=== PATIENT | female | born 1980 | race Caucasian/White ===

== ENCOUNTER → 2016-04-05 | Outpatient (CLI) | payer OTHER ==
[~2016-04-05] MED LIST: ALBU17IN2 INH; ANUS2.5C2 TOP; COLA100C PO; MOM30SS PO; MOTR200T44 PO; PRENMIS3 PO; SING10TA32 PO; TYLE167L PO; ZYRT10CA PO
[2016-04-05 13:33] LABS: BASO % 0.6 % (0.0-1.0); EOS # 0.1 K/mm3 (0.0-0.50); EOS % 1.1 % (0.0-3.0); LARGE UNSTAINED CELL # 0.1 K/mm3 (0.0-0.4); LARGE UNSTAINED CELL % 1.7 % (0.0-4.0); LYMPH # 2.3 K/mm3 (1.5-4.5); LYMPH % 31.2 % (24.0-44.0); MEAN CORPUSCULAR HEMOGLOBIN 30.4 pg (27.0-33.0); MONO # 0.4 K/mm3 (0.0-0.8); NEUTROPHILS # 4.4 K/mm3 (1.8-7.7); NEUTROPHILS % 59.5 % (36.0-66.0); PLATELET COUNT, AUTOMATED 191 k/mm3 (150-450); RED CELL DISTRIBUTION WIDTH 11.3 % (11.5-14.5); WHITE BLOOD COUNT 7.4 K/mm3 (4.0-10.0)
[2016-04-05 14:06] LABS: HBsAg Prenatal NEGATIVE (NEGATIVE)
[2016-04-05 14:36] LABS: HIV SCRN NEGATIVE (NEGATIVE)
[2016-04-05 14:37] LABS: CONTROL LINE INT CTR LINE PRESENT; HIV SCRN1 NEGATIVE (NEGATIVE)
== END ==
LOC: M SMT 08:18
PROVIDERS: ATTEND Advanced Practice Midwife
DX: Z34.81 Encounter for supervision of other normal pregnancy, first trimester (principal)

== ENCOUNTER → 2016-07-07 | Outpatient (CLI) | payer OTHER ==
[~2016-07-07] MED LIST changes: -COLA100C PO; +COLA100C3 PO
--- NOTE | 2016-07-08 05:27 | REP ---
Clinical: Anatomical evaluation. Comparison: None . Findings: Examination demonstrates a single live intrauterine in cephalic presentation. motion is identified by technologist. Placenta is noted posterior and grade 0 without evidence for placenta previa or abruption. Amniotic fluid volume is normal. Cervix measures 6.1 cm in length and appears closed. 2.9 cm anterior fibroid in the lower uterine segment noted. No evidence for nuchal cord. Gestational age by LMP 19 week 6 days with LYNN 11/25/2016 . Gestational age by current measurements 20 weeks 1 day with LYNN 11/23/2016 . FHR equals 144 beats per minute. BPD 4.8 cm 20 weeks 4 days HC 17.9 cm 20 weeks 3 days AC 15.0 cm 20 weeks 2 days FL 3.3 cm 20 weeks 2 days HL 2.9 cm 19 weeks 3 days HC/AC ratio 1.19 Estimated weight 344 grams ( 61st percentile). Anatomical assessment demonstrates normal structures including cranium, choroid plexus, cavum, cerebellum/posterior fossa, facial features, lungs, four-chamber heart/ventricular outflow tracts, diaphragm, stomach, cord insertion/three-vessel cord, kidneys/bladder, spine, and extremities. Echogenic focus in the left cardiac ventricle likely prominent chordae tendineae. Impression: 1. Single live intrauterine in cephalic presentation demonstrating appropriate interval growth. 2. A 2.9 cm anterior fibroid in the lower uterine segment. 3. Anatomical assessment is essentially normal as described above. Prominent chordae tendineae suggested. Signed by Robbin Hughes MD 07/08/2016 05:18 A
== END ==
LOC: M RAD 17:24
PROVIDERS: ATTEND Advanced Practice Midwife
DX: Z34.82 Encounter for supervision of other normal pregnancy, second trimester (principal); Z3A.19 19 weeks gestation of pregnancy

== ENCOUNTER → 2016-07-22 | Outpatient (CLI) | payer OTHER | LOC: M SMT 10:17 | PROVIDERS: ATTEND Obstetrics & Gynecology | DX: Z36 Encounter for antenatal screening of mother (principal) ==

== ENCOUNTER → 2016-08-06 | Outpatient (CLI) | payer OTHER ==
[2016-08-06 13:39] LABS: MEAN CORPUSCULAR HEMOGLOBIN 32.4 pg (27.0-33.0); MEAN CORPUSCULAR HGB CONC 33.8 g/dl (32.0-36.5); MEAN CORPUSCULAR VOLUME 96.1 fl (80.0-96.0); RED CELL DISTRIBUTION WIDTH 12.2 % (11.5-14.5); WHITE BLOOD COUNT 11.3 K/mm3 (4.0-10.0)
== END ==
LOC: M SMT 09:07
PROVIDERS: ATTEND Obstetrics & Gynecology
DX: Z34.82 Encounter for supervision of other normal pregnancy, second trimester (principal)

== ENCOUNTER → 2016-10-28 | Outpatient (REF) | payer OTHER ==
[~2016-10-28] MED LIST changes: +ASMA110A IN; -COLA100C3 PO; +COLA100C5 PO; +IBUP-1114 PO; +PRENTAB9 PO; +RANI15TA PO
== END ==
LOC: M LAB REF 13:34
PROVIDERS: ATTEND Advanced Practice Midwife
DX: Z36 Encounter for antenatal screening of mother (principal); Z3A.00 Weeks of gestation of pregnancy not specified

== ENCOUNTER 2016-11-24 11:54 | Inpatient (IN) | payer OTHER ==
[~2016-11-24] VITALS: Ht 157.5 cm; Wt 91.8 kg
[~2016-11-24 11:54] MED LIST changes: -ASMA110A IN; -IBUP-1114 PO; -PRENTAB9 PO; -RANI15TA PO
[2016-11-24] MEDS ORDERED: ASMA110A IN (12:22)
[2016-11-24] MEDS ORDERED: RANI15TA PO (12:22)
[2016-11-24] MEDS ORDERED: LR 1,000 ML IV SCH (13:25)
[2016-11-24] MEDS ORDERED: OXYTOCIN DRIP 30 UNITS in APPROPRIATE DILUENT 1 EA IV SCH (13:30)
--- NOTE | 2016-11-24 14:28 | HPE ---
DATE OF ADMISSION: 11/24/2016 36-year-old, (G) 2, para (P) 1-0-0-1 female at 39 and 6/7 weeks gestation by last menstrual period (LMP) consistent with 10 week ultrasound and expected date of confinement (EDC) of 11/25/2016 who presents with spontaneous loss of fluid per vagina at 9:00 a.m. on the morning of admission. She denies vaginal bleeding and has good movement. Contractions are irregular. COURSE: The patient initiated care at 9 weeks gestation on 04/27/2016. Her blood pressure was 198/60, weight 159 pounds. course was unremarkable. OBSTETRICAL HISTORY: 1. In June 2013, 41 week vaginal delivery of a 7 pound 14 ounce male infant with no complications. MEDICAL HISTORY: Asthma. ALLERGIES: SULFA. SURGERIES: 1. Cryo surgery in 2003 of the cervix. 2. Left knee surgery. 3. Bunion surgery on her left foot. 4. In 2003, removal of neuroma from her left foot. 5. In 2005, left shoulder surgery. 6. In 2008, LASIK eye surgery. SOCIAL HISTORY: The patient denies cigarettes, alcohol or drug use. The patient is . FAMILY HISTORY: Noncontributory. PHYSICAL EXAMINATION: Blood pressure 124/78. Pulse 84. She is in on apparent distress. Head and neck exam normal. Lungs clear. Heart regular rate and rhythm. Abdomen nontender, gravid. heart tones Category 1. Sterile Vaginal Exam: 2-3 cm, 50% effaced, -2 station, vertex. Extremities: Nontender. Grossly ruptured, clear fluid. LABS: Blood type B positive. Rubella immune. RPR nonreactive. Hepatitis B and C negative. HIV negative. Diabetes screen 111. GBS negative on 10/28/2016. ASSESSMENT: 36-year-old, G 2, P1 female at 39 and 6/7 weeks gestation who presents with spontaneous rupture of membranes and early labor. The patient is admitted on 11/24/2016. If needed, can augment with oxytocin.
[2016-11-24 14:36] LABS: MEAN CORPUSCULAR HEMOGLOBIN 30.5 pg (27.0-33.0); MEAN CORPUSCULAR HGB CONC 34.6 g/dl (32.0-36.5); MEAN CORPUSCULAR VOLUME 88.1 fl (80.0-96.0); RED CELL DISTRIBUTION WIDTH 12.5 % (11.5-14.5); WHITE BLOOD COUNT 12.5 K/mm3 (4.0-10.0)
[2016-11-24] MEDS ORDERED: FENTANYL 2MCG/ML ROPIVACAINE 0.2% IN 0.9% NACL 200ML IVBAG As Ordered ONE (15:02)
[2016-11-24] MEDS ORDERED: diphenhydrAMINE INJ 50MG/ML VIAL (J1200) IV PRN (16:15)
[2016-11-24] MEDS ORDERED: ONDANSETRON 4MG/2ML VIAL (J2405) IV PRN ×2 (16:15→19:15)
[2016-11-24] MEDS ORDERED: REFRIGERATOR IV KEYS XX PRN (16:15)
[2016-11-24] MEDS ORDERED: EPIDURAL/PCA KEYS XX PRN (16:15)
[2016-11-24] MEDS ORDERED: EPIDURAL COMMENT XX SCH (16:15)
[2016-11-24] MEDS ORDERED: LACTATED RINGER'S 1000 ML IV PRN (16:15)
[2016-11-24] MEDS ORDERED: FENTANYL/ROPIVACAINE/NACL BAG 200 ML EPIDURAL SCH (16:15)
[2016-11-24] MEDS ORDERED: NALOXONE INJ 0.4 MG/1 ML VIAL (J2310) IV PRN (16:15)
[2016-11-24] MEDS: ePHEDrine SULFATE 25 MG/5 ML(5MG/ML) SYRINGE IV PRN ×3 (16:32→16:42)
[2016-11-24 19:13] VITALS: BP 125/58
[2016-11-24] MEDS ORDERED: DIBUCAINE 1% OINTMENT 30GM TOP PRN (19:15)
[2016-11-24] MEDS ORDERED: MEASLES,MUMPS,RUBELLA VACCINE INJ (MMR-II) (90707) SC SCH (19:15)
[2016-11-24] MEDS ORDERED: ACETAMINOPHEN 500 MG TAB PO PRN (19:15)
[2016-11-24] MEDS ORDERED: RHOGAM 300 MCG (1500 IU) INJ (J2790) IM SCH (19:15)
[2016-11-24] MEDS ORDERED: METHYLERGONOVINE MALEATE 0.2 MG TAB PO PRN (19:15)
[2016-11-24] MEDS ORDERED: DOCUSATE SODIUM 100 MG CAP PO PRN (19:15)
[2016-11-24] MEDS ORDERED: OXYTOCIN DRIP 30 UNITS in APPROPRIATE DILUENT 1 EA IV ONE (19:15)
[2016-11-24 19:28] VITALS: BP 104/60
[2016-11-24 19:43] VITALS: BP 111/66
[2016-11-24 19:58] VITALS: BP 111/58
[2016-11-24 20:13] VITALS: BP 123/61
[2016-11-24 22:01] VITALS: BP 127/60
[2016-11-24] MEDS: IBUPROFEN 800 MG TAB PO PRN (23:51)
[2016-11-25 06:16] VITALS: BP 109/61
--- NOTE | 2016-11-25 07:38 | DN ---
DATE: 11/24/2016 PREDELIVERY DIAGNOSIS: Term , labor. POSTDELIVERY DIAGNOSIS: Delivered. PROCEDURE: Spontaneous vaginal delivery. BANKRUPTCY JUDGE: Dr. Nacho Lenz ANESTHESIA: Epidural. ESTIMATED BLOOD LOSS: 300 mL. FINDINGS: 7 pound 4 ounce male infant, Apgars 8 and 9. DELIVERY SUMMARY: After a short second stage of 10 to 15 minutes, the patient had spontaneous delivery of a 7 pound 4 ounce male , Apgars of 8 and 9, under epidural anesthesia. Tight nuchal cord times one was clamped and cut. Light meconium was present. Shoulders delivered spontaneously with ease. Infant cried spontaneously and was handed to the mother. Placenta delivered spontaneously and appeared to be intact. The patient received IV Pitocin immediately after delivery of the placenta. A first degree perineal laceration was repaired with #2-0 chromic in the usual fashion. Sponge and needle counts were correct.
[2016-11-25] MEDS: PRENATAL VITAMINS CHEWABLE TABLET PO SCH (08:05)
[2016-11-25] MEDS: MONTELUKAST 10 MG TAB PO SCH (08:05)
[2016-11-25] MEDS: CETIRIZINE (ZyrTEC) 10 MG TAB PO SCH (08:05)
[2016-11-25] MEDS: IBUPROFEN 800 MG TAB PO PRN ×3 (08:06→23:26)
[2016-11-25 18:00] VITALS: BP 100/50
[2016-11-26 06:34] VITALS: BP 113/67
[2016-11-26] MEDS ORDERED: IBUP-1114 PO (09:01)
[2016-11-26] MEDS ORDERED: PRENTAB9 PO (09:01)
[2016-11-26] MEDS: CETIRIZINE (ZyrTEC) 10 MG TAB PO SCH (09:39)
[2016-11-26] MEDS: MONTELUKAST 10 MG TAB PO SCH (09:39)
[2016-11-26] MEDS: PRENATAL VITAMINS CHEWABLE TABLET PO SCH (09:39)
[2016-11-26] MEDS: IBUPROFEN 800 MG TAB PO PRN (09:45)
== END 2016-11-26 10:55 | disposition home or self-care (01) | DRG 775 ==
LOC: M LDO 11:54 → M LDI 12:30 → M OBS 20:48
PROVIDERS: ADMIT Specialist; ATTEND Specialist
PROC: 10E0XZZ Delivery of Products of Conception, External Approach (ICD-10-PCS; principal; 2016-11-24)
PROC: 0HQ9XZZ Repair Perineum Skin, External Approach (ICD-10-PCS; 2016-11-24)
DX: O69.89X0 Labor and delivery complicated by other cord complications, not applicable or unspecified (principal); Z37.0 Single live birth; Z3A.39 39 weeks gestation of pregnancy; O77.0 Labor and delivery complicated by meconium in amniotic fluid; O70.0 First degree perineal laceration during delivery

== ENCOUNTER → 2017-03-09 | Outpatient (CLI) | payer OTHER | LOC: M WUC 10:24 | DX: M79.671 Pain in right foot (principal) | CPT/HCPCS: 73630 ==

== ENCOUNTER → 2017-04-13 | Outpatient (REF) | payer OTHER ==
[2017-04-13 14:15] LABS: INFLUENZA A AMPLIFICATION NEGATIVE (NEGATIVE); INFLUENZA B AMPLIFICATION NEGATIVE (NEGATIVE)
== END ==
LOC: M LAB REF 13:09
DX: J06.9 Acute upper respiratory infection, unspecified (principal)

== ENCOUNTER → 2018-03-29 | Outpatient (CLI) | payer OTHER ==
[~2018-03-29] MED LIST changes: +ASMA110A IN; +IBUP-1114 PO; +PRENTAB9 PO; +RANI15TA PO
[2018-03-29 13:36] LABS: BASO % 0.4 % (0.0-1.0); EOS # 0.1 10^3/uL (0.0-0.50); EOS % 1.1 % (0.0-3.0); HEMATOCRIT 43.5 % (36.0-47.0); HEMOGLOBIN 14.6 g/dl (12.0-15.5); LYMPH # 2.5 10^3/uL (1.5-4.5); MEAN CORPUSCULAR HEMOGLOBIN 30.3 pg (27.0-33.0); MEAN CORPUSCULAR HGB CONC 33.6 g/dl (32.0-36.5); MEAN CORPUSCULAR VOLUME 90.2 fl (80.0-96.0); MONO # 0.4 10^3/uL (0.0-0.8); MONO % 5.9 % (0.0-5.0); NEUTROPHILS # 4.3 10^3/uL (1.8-7.7); NEUTROPHILS % 58.3 % (36.0-66.0); PLATELET COUNT, AUTOMATED 245 10^3/uL (150-450); RED BLOOD COUNT 4.82 10^6/uL (4.00-5.40); WHITE BLOOD COUNT 7.3 10^3/uL (4.0-10.0)
[2018-03-29 13:48] LABS: ALT/SGPT 19 U/L (12-78); BLOOD UREA NITROGEN 14 MG/DL (7-18); CALCIUM LEVEL 9.4 MG/DL (8.5-10.1); CARBON DIOXIDE LEVEL 27 MEQ/L (21-32); CHLORIDE LEVEL 104 MEQ/L (98-107); CHOLESTEROL LEVEL 176 MG/DL (<200); CHOLESTEROL RISK RATIO 2.346 (<5); CREATININE FOR GFR 0.96 MG/DL (0.55-1.30); FREE T4 0.95 NG/DL (0.76-1.46); GLOMERULAR FILTRATION RATE > 60.0 (>60); GLUCOSE, FASTING 93 MG/DL (70-100); HDL CHOLESTEROL 75 MG/DL (>40); LDL CHOLESTEROL 91 MG/DL (<100); NON-HDL-C 101 MG/DL; POTASSIUM SERUM 4.3 MEQ/L (3.5-5.1); SODIUM LEVEL 139 MEQ/L (136-145); THYROID STIMULATING HORMONE 0.833 uIU/ML (0.358-3.740); TOTAL PROTEIN 7.1 GM/DL (6.4-8.2); TRIGLYCERIDES LEVEL 51 MG/DL (<150)
== END ==
LOC: M SMT 09:39
PROVIDERS: ATTEND Family Medicine
DX: Z13.0 Encounter for screening for diseases of the blood and blood-forming organs and certain disorders involving the immune mechanism (principal); Z13.220 Encounter for screening for lipoid disorders; Z13.29 Encounter for screening for other suspected endocrine disorder

== ENCOUNTER → 2018-04-17 | Outpatient (CLI) | payer OTHER ==
--- NOTE | 2018-04-24 10:24 | SLEEPHOME ---
DATE OF PROCEDURE: 04/17/2018 ORDERED BY: Ginny Sanchez. INDICATIONS: Diagnostic home sleep testing was performed due to concern for the obstructive sleep apnea syndrome in this patient with a history of excessive somnolence and nonrestorative sleep. For testing, a nocturnal T3 respiratory monitoring device was used. Continuous record was made of pulse, oxygen saturation, airflow, chest, abdominal strain and body position. 10 hours and 59 minutes of data were reviewed. Of these, 7 hours and 13 minutes were marked as time in bed. During the interval marked time in bed, there were only 9 respiratory events identified of 10 seconds in duration or greater for a respiratory event index was only 1.2. The patient's pulse rate at baseline was 60 beats per minute, pulse rate ranged from 47-98. Saturations ranged from 92-95%. Testing was performed in both the supine and non-supine positions. IMPRESSION: Reasonably normal diagnostic home sleep testing with rare respiratory events and snoring.
== END ==
LOC: M SLEEP HO 03-21 12:03
PROVIDERS: ATTEND Nurse Practitioner Family
DX: R40.0 Somnolence (principal); R06.83 Snoring

== ENCOUNTER → 2018-08-21 | Outpatient (REF) | payer OTHER ==
[2018-08-23 14:47] LABS: HPV HYBRID CAPTURE II Negative (Negative)
== END ==
LOC: M LAB REF 12:44
PROVIDERS: ATTEND Advanced Practice Midwife
DX: Z12.4 Encounter for screening for malignant neoplasm of cervix (principal)
CPT/HCPCS: 87624; G0123

== ENCOUNTER 2018-09-27 15:00 | Outpatient (RCR) | payer OTHER | END 2018-10-04 | LOC: M PT 15:00 | PROVIDERS: ATTEND Advanced Practice Midwife | DX: Z51.89 Encounter for other specified aftercare (principal); N39.3 Stress incontinence (female) (male) ==

== ENCOUNTER → 2018-10-02 | Outpatient (REF) | payer OTHER | LOC: M LAB REF 18:08 | PROVIDERS: ATTEND Advanced Practice Midwife | DX: N92.0 Excessive and frequent menstruation with regular cycle (principal); N85.00 Endometrial hyperplasia, unspecified ==

== ENCOUNTER → 2018-10-12 | Outpatient (REF) | payer OTHER | LOC: M LAB REF 09:47 | PROVIDERS: ATTEND Surgery | DX: C44.619 Basal cell carcinoma of skin of left upper limb, including shoulder (principal) ==

== ENCOUNTER 2018-10-24 08:30 | Outpatient (RCR) | payer OTHER | END 2018-11-04 | LOC: M PT 08:30 | PROVIDERS: ATTEND Advanced Practice Midwife | DX: N39.3 Stress incontinence (female) (male) (principal) ==

== ENCOUNTER → 2018-11-13 | Outpatient (REF) ==
[2018-11-13 14:03] LABS: BASO % 0.5 % (0.0-1.0); EOS # 0.2 10^3/uL (0.0-0.5); EOS % 2.8 % (0.0-3.0); HEMATOCRIT 42.8 % (36.0-47.0); LYMPH # 3.5 10^3/uL (1.5-5.0); LYMPH % 44.7 % (24.0-44.0); MEAN CORPUSCULAR HEMOGLOBIN 30.2 pg (27.0-33.0); MEAN CORPUSCULAR HGB CONC 32.7 g/dl (32.0-36.5); MEAN CORPUSCULAR VOLUME 92.4 fl (80.0-96.0); MONO # 0.6 10^3/uL (0.0-0.8); MONO % 8.2 % (0.0-5.0); NEUTROPHILS # 3.4 10^3/uL (1.5-8.5); NEUTROPHILS % 43.5 % (36.0-66.0); PLATELET COUNT, AUTOMATED 197 10^3/uL (150-450); RED BLOOD COUNT 4.63 10^6/uL (4.00-5.40); WHITE BLOOD COUNT 7.7 10^3/uL (4.0-10.0)
== END ==
LOC: M LAB REF 13:02 → M SMT 13:02
PROVIDERS: ATTEND Allergy & Immunology Allergy
DX: J45.30 Mild persistent asthma, uncomplicated (principal)

== ENCOUNTER 2018-11-21 14:08 | Outpatient (RCR) | payer OTHER | END 2018-12-04 | LOC: M PT 14:08 | PROVIDERS: ATTEND Advanced Practice Midwife | DX: N39.3 Stress incontinence (female) (male) (principal) ==

== ENCOUNTER 2018-12-06 09:23 | Outpatient (RCR) | payer OTHER ==
[2018-12-13] MEDS ORDERED: CETI10CA13 PO (08:18)
[2018-12-13] MEDS ORDERED: VENTAER INH (08:18)
[2018-12-13] MEDS ORDERED: FLON27.5 (08:18)
[2018-12-13] MEDS ORDERED: MINO100C4 PO (08:18)
[2018-12-13] MEDS ORDERED: ASMA16.7 INH (08:18)
[2018-12-27] MEDS ORDERED: OXYC1TAB23 PO (13:42)
[2018-12-27] MEDS ORDERED: IBUP-1022 PO (13:44)
== END 2019-01-04 ==
LOC: M PT 09:23
PROVIDERS: ATTEND Advanced Practice Midwife
DX: N39.3 Stress incontinence (female) (male) (principal)

== ENCOUNTER 2018-12-27 10:05 | Day surgery (SDC) | payer OTHER ==
[~2018-12-27] VITALS: Ht 157.5 cm; Wt 73.0 kg
[2018-12-27] VITALS (8 sets, daily range): BP systolic 106–117; BP diastolic 57–71
[~2018-12-27 10:05] MED LIST changes: +ASMA16.7 INH; +CETI10CA13 PO; +FLON27.5; +LR 1,000 ML IV ONE; +MINO100C4 PO; +VENTAER INH; +ceFAZolin SOD 2 GM in IV 1 EA IV ONE
[2018-12-27 10:55] LABS: HEMATOCRIT 42.8 % (36.0-47.0); HEMOGLOBIN 14.4 g/dl (12.0-15.5); MEAN CORPUSCULAR HEMOGLOBIN 30.9 pg (27.0-33.0); MEAN CORPUSCULAR HGB CONC 33.6 g/dl (32.0-36.5); MEAN CORPUSCULAR VOLUME 91.8 fl (80.0-96.0); PLATELET COUNT, AUTOMATED 206 10^3/uL (150-450); RED BLOOD COUNT 4.66 10^6/uL (4.00-5.40); WHITE BLOOD COUNT 6.8 10^3/uL (4.0-10.0)
[2018-12-27] MEDS ORDERED: fentaNYL 250 MCG/5 ML INJECTION (J3010) As Ordered ONE (10:56)
[2018-12-27] MEDS ORDERED: MIDAZOLAM INJ 2 MG/2 ML VIAL (J2250) As Ordered ONE (10:56)
[2018-12-27] MEDS ORDERED: PROPOFOL 200 MG/20 ML VIAL As Ordered ONE (10:57)
[2018-12-27] MEDS ORDERED: ROCURONIUM BROMIDE 50 MG/5 ML VIAL As Ordered ONE (10:57)
[2018-12-27] MEDS ORDERED: LIDOCAINE 2% INJ 100 MG/5 ML SDV (FOR ANES.) As Ordered ONE (10:57)
[2018-12-27] MEDS ORDERED: ONDANSETRON 4MG/2ML VIAL (J2405) As Ordered ONE (10:58)
[2018-12-27] MEDS ORDERED: dexameTHASONE 4 MG/ML 1ML VIAL (J1100) As Ordered ONE (10:58)
[2018-12-27] MEDS ORDERED: BUPIVACAINE HCL 0.25% 10 ML VIAL As Ordered ONE (12:07)
[2018-12-27] MEDS ORDERED: ACETAMINOPHEN 1000MG 100ML IV BTL (OFIRMEV) (J0131 PER 10MG) As Ordered ONE (12:36)
[2018-12-27] MEDS ORDERED: KETOROLAC 60 MG/2 ML VIAL (J1885) As Ordered ONE (12:57)
[2018-12-27] MEDS ORDERED: OXYC1TAB23 PO (13:42)
[2018-12-27] MEDS ORDERED: IBUP-1022 PO (13:44)
[2018-12-27] MEDS ORDERED: PERCOCET 5MG/325MG TAB As Ordered ONE (13:45)
[2018-12-27] MEDS ORDERED: fentaNYL 100 MCG/2 ML INJECTION (J3010) IV PRN (14:00)
[2018-12-27] MEDS ORDERED: PERCOCET 5MG/325MG TAB PO PRN ×2 (14:00→15:00)
[2018-12-27] MEDS ORDERED: METOCLOPRAMIDE INJ 10MG/2ML VIAL (J2765) IV PRN (14:00)
[2018-12-27] MEDS ORDERED: LR 1,000 ML IV SCH ×2 (14:00→15:00)
[2018-12-27] MEDS ORDERED: ONDANSETRON 4MG/2ML VIAL (J2405) IV PRN ×2 (14:00→15:00)
[2018-12-27] MEDS ORDERED: MORPHINE 4 MG/ML 1ML VIAL/SYRINGE (J2270) IV PRN (15:00)
[2018-12-27] MEDS: DOCUSATE SODIUM 100 MG CAP PO SCH ×2 (15:14→21:16)
--- NOTE | 2018-12-27 18:42 | RO ---
DATE OF PROCEDURE: 12/27/2018 PREPROCEDURE DIAGNOSIS: Menorrhagia, pelvic pain. POSTPROCEDURE DIAGNOSIS: Menorrhagia, pelvic pain. OPERATIVE PROCEDURES: Robotic assisted laparoscopic hysterectomy, bilateral salpingectomy. SURGEON: Nacho Lenz MD CLINIC OFFICE MANAGER: Balbina Diaz NP ANESTHESIA: General endotracheal. ESTIMATED BLOOD LOSS: 200 mL URINE OUTPUT: 100 mL FINDINGS: Normal sized uterus, normal fallopian tubes and ovaries. Mild endometriosis involving fallopian tubes. OPERATIVE SUMMARY: Patient taken to the operating room where general endotracheal anesthesia was induced. She was prepped and draped in a sterile fashion in the dorsal lithotomy position. A Martino catheter was placed. A VCare uterine manipulator was placed. Periumbilical incision was made with a scalpel. A Veress needle was placed through this incision while tenting up on the skin of the abdomen. Intraabdominal location of the Veress needle was assessed using saline filled syringe. Pneumoperitoneum was created. The Veress needle was removed. An 8 mm trocar using Omateort was inserted. Scope with camera used to visualize the abdomen and pelvis. Three 8 mm suprapubic ports were placed under direct visualization. The patient was placed in Trendelenburg position. The [place] surgical robot was docked to the ports. Using the fenestrated bipolar and the Vessel Sealer the broad ligament attachments of the fallopian tube were coagulated and incised. The round ligament and uteroovarian ligaments were coagulated and incised. The anterior and posterior leaves of the broad ligament were . A bladder flap was created. Uterine vessels were coagulated and incised. Using monopolar Endo Luz Maria a colpotomy was created in the upper vagina at the level of the VCare cup. This was extended circumferentially around the vagina. Specimen including the uterus, cervix, and fallopian tubes were removed through the vagina. The vaginal cuff was closed with #1 V-Loc suture in a running fashion. The pelvis was irrigated with good hemostasis noted. All instruments removed. The skin was closed with #4-0 Monocryl subcuticular sutures. Sponge, instrument and needle counts were correct. Balbina Diaz NP assisted throughout the procedure. She helped position the patient and place the ports. She helped manipulate the uterus and removed the specimen at the end of the procedure. She subsequently helped close.
[2018-12-27] MEDS ORDERED: KETOROLAC 30 MG/ML VIAL (J1885) IV PRN (19:00)
[2018-12-27] MEDS: PERCOCET 5MG/325MG TAB PO PRN (21:17)
[2018-12-28 02:00] VITALS: BP 121/60
[2018-12-28] MEDS: PERCOCET 5MG/325MG TAB PO PRN ×2 (05:46→10:26)
[2018-12-28 06:00] VITALS: BP 118/57
[2018-12-28] MEDS: DOCUSATE SODIUM 100 MG CAP PO SCH (08:58)
== END 2018-12-28 11:09 | disposition home or self-care (01) ==
LOC: M SDC 10:05 → M MSPAV 14:41 → M SDC 12-28 11:09
PROVIDERS: ATTEND Specialist
DX: N92.0 Excessive and frequent menstruation with regular cycle (principal); R10.2 Pelvic and perineal pain; K58.9 Irritable bowel syndrome, unspecified; M12.9 Arthropathy, unspecified; J45.909 Unspecified asthma, uncomplicated; R06.83 Snoring; N39.3 Stress incontinence (female) (male); Z88.2 Allergy status to sulfonamides; Z79.899 Other long term (current) drug therapy
CPT/HCPCS: 36415; 58571; 85027; 86850; 86900; 86901; 88307; J0131; J0690; J1100; J1885; J2250; J2405; J3010

== ENCOUNTER → 2019-04-02 | Outpatient (CLI) | payer OTHER ==
[~2019-04-02] MED LIST changes: +IBUP-1022 PO; -LR 1,000 ML IV ONE; +OXYC1TAB23 PO; -ceFAZolin SOD 2 GM in IV 1 EA IV ONE
--- NOTE | 2019-04-02 19:58 | REP ---
PA and lateral chest: Comparison is 06/05/2010. The lung sofia are clear. The cardiac size is normal. The fermin, mediastinum, and skeletal structures are unremarkable. Impression: Negative PA and lateral chest. There is no interval change Electronically Signed by Sohan Guzman MD 04/02/2019 07:49 P
== END ==
LOC: M WUC 19:13
PROVIDERS: ATTEND Physician Assistant
DX: R05 Cough (principal)

== ENCOUNTER → 2019-04-10 | Outpatient (REF) | payer OTHER ==
[2019-04-10 13:53] LABS: BASO % 0.3 % (0.0-1.0); EOS % 0.2 % (0.0-3.0); HEMATOCRIT 45.3 % (36.0-47.0); HEMOGLOBIN 14.4 g/dl (12.0-15.5); LYMPH # 2.9 10^3/uL (1.5-5.0); MEAN CORPUSCULAR HEMOGLOBIN 29.3 pg (27.0-33.0); MEAN CORPUSCULAR HGB CONC 31.8 g/dl (32.0-36.5); MEAN CORPUSCULAR VOLUME 92.3 fl (80.0-96.0); MONO # 1.4 10^3/uL (0.0-0.8); MONO % 9.5 % (0.0-5.0); NEUTROPHILS # 9.7 10^3/uL (1.5-8.5); NEUTROPHILS % 67.6 % (36.0-66.0); PLATELET COUNT, AUTOMATED 255 10^3/uL (150-450); RED BLOOD COUNT 4.91 10^6/uL (4.00-5.40); WHITE BLOOD COUNT 14.4 10^3/uL (4.0-10.0)
[2019-04-10 14:28] LABS: ALT/SGPT 15 U/L (12-78); BILIRUBIN,TOTAL 0.2 MG/DL (0.2-1.0); BLOOD UREA NITROGEN 16 MG/DL (7-18); CALCIUM LEVEL 8.8 MG/DL (8.5-10.1); CARBON DIOXIDE LEVEL 30 MEQ/L (21-32); CHLORIDE LEVEL 106 MEQ/L (98-107); CHOLESTEROL LEVEL 191 MG/DL (<200); CREATININE FOR GFR 0.95 MG/DL (0.55-1.30); GLOMERULAR FILTRATION RATE > 60.0 (>60); GLUCOSE, FASTING 117 MG/DL (70-100); HDL CHOLESTEROL 69 MG/DL (>40); POTASSIUM SERUM 3.9 MEQ/L (3.5-5.1); SODIUM LEVEL 141 MEQ/L (136-145); TRIGLYCERIDES LEVEL 107 MG/DL (<150)
[2019-04-10 14:29] LABS: ALBUMIN 3.5 GM/DL (3.2-5.2); CHOLESTEROL RISK RATIO 2.768 (<5); FREE T4 1.12 NG/DL (0.76-1.46); LDL CHOLESTEROL 101 MG/DL (<100); NON-HDL-C 122 MG/DL; THYROID STIMULATING HORMONE 0.696 uIU/ML (0.358-3.740); TOTAL PROTEIN 6.5 GM/DL (6.4-8.2)
[2019-04-11 11:42] LABS: HEMOGLOBIN A1c 5.8 %
== END ==
LOC: M LABDRAW1 13:08
PROVIDERS: ATTEND Family Medicine
DX: Z13.0 Encounter for screening for diseases of the blood and blood-forming organs and certain disorders involving the immune mechanism (principal); Z13.220 Encounter for screening for lipoid disorders; Z13.29 Encounter for screening for other suspected endocrine disorder

== ENCOUNTER → 2019-11-08 | Outpatient (CLI) | payer OTHER ==
[2019-11-08 13:12] LABS: BASO % 0.6 % (0.0-1.0); EOS # 0.1 10^3/uL (0.0-0.5); EOS % 1.1 % (0.0-3.0); HEMATOCRIT 40.4 % (36.0-47.0); HEMOGLOBIN 13.4 g/dl (12.0-15.5); LYMPH # 1.9 10^3/uL (1.5-5.0); MEAN CORPUSCULAR HEMOGLOBIN 30.9 pg (27.0-33.0); MEAN CORPUSCULAR HGB CONC 33.2 g/dl (32.0-36.5); MEAN CORPUSCULAR VOLUME 93.1 fl (80.0-96.0); MONO # 0.6 10^3/uL (0.0-0.8); MONO % 9.4 % (0.0-5.0); NEUTROPHILS # 3.6 10^3/uL (1.5-8.5); NEUTROPHILS % 57.7 % (36.0-66.0); PLATELET COUNT, AUTOMATED 209 10^3/uL (150-450); RED BLOOD COUNT 4.34 10^6/uL (4.00-5.40); WHITE BLOOD COUNT 6.2 10^3/uL (4.0-10.0)
[2019-11-08 13:26] LABS: APPEARANCE, URINE CLEAR (CLEAR); BACTERIA, URINE AUTO NEGATIVE (NEGATIVE); BILIRUBIN, URINE AUTO NEGATIVE (NEGATIVE); BLOOD, URINE BLOOD NEGATIVE (NEGATIVE); COLOR, URINE STRAW (YELLOW); GLUCOSE, URINE (UA) AUTO NEGATIVE (NEGATIVE); KETONE, URINE AUTO NEGATIVE (NEGATIVE); LEUKOCYTE ESTERASE, URINE AUTO NEGATIVE (NEGATIVE); NITRITE, URINE AUTO NEGATIVE (NEGATIVE); PROTEIN, URINE AUTO NEGATIVE (NEGATIVE); RBC, URINE AUTO 1 /HPF (0-3); SPECIFIC GRAVITY URINE AUTO 1.005 (1.002-1.035); SQUAMOUS EPITHELIAL CELL UR AU 2 /HPF (0-6); UROBILINOGEN, URINE AUTO 0.2 mg/dL (0.0-2.0); WBC, URINE AUTO 0 /HPF (0-3)
[2019-11-08 13:33] LABS: ALBUMIN 3.8 GM/DL (3.2-5.2); ALT/SGPT 16 U/L (12-78); BILIRUBIN,TOTAL 0.8 MG/DL (0.2-1.0); BLOOD UREA NITROGEN 16 MG/DL (7-18); CALCIUM LEVEL 9.4 MG/DL (8.5-10.1); CARBON DIOXIDE LEVEL 28 MEQ/L (21-32); CHLORIDE LEVEL 104 MEQ/L (98-107); CREATININE FOR GFR 1.03 MG/DL (0.55-1.30); GLOMERULAR FILTRATION RATE > 60.0 (>60); GLUCOSE, FASTING 87 MG/DL (70-100); POTASSIUM SERUM 3.8 MEQ/L (3.5-5.1); SODIUM LEVEL 138 MEQ/L (136-145); TOTAL PROTEIN 6.5 GM/DL (6.4-8.2)
== END ==
LOC: M WUC 09:23
PROVIDERS: ATTEND Urology
DX: Z01.812 Encounter for preprocedural laboratory examination (principal); R82.998 Other abnormal findings in urine; R79.9 Abnormal finding of blood chemistry, unspecified

== ENCOUNTER → 2020-05-26 | Outpatient (CLI) | payer OTHER ==
[2020-05-26 13:49] LABS: BASO # 0.1 10^3/uL (0.0-0.2); BASO % 0.9 % (0.0-1.0); EOS # 0.1 10^3/uL (0.0-0.5); EOS % 2.4 % (0.0-3.0); HEMATOCRIT 43.1 % (36.0-47.0); HEMOGLOBIN 13.9 g/dl (12.0-15.5); LYMPH # 2.2 10^3/uL (1.5-5.0); LYMPH % 40.4 % (24.0-44.0); MEAN CORPUSCULAR HEMOGLOBIN 30.7 pg (27.0-33.0); MEAN CORPUSCULAR HGB CONC 32.3 g/dl (32.0-36.5); MEAN CORPUSCULAR VOLUME 95.1 fl (80.0-96.0); MONO # 0.5 10^3/uL (0.0-0.8); MONO % 8.9 % (2.0-8.0); NEUTROPHILS # 2.6 10^3/uL (1.5-8.5); NEUTROPHILS % 47.2 % (36.0-66.0); PLATELET COUNT, AUTOMATED 197 10^3/uL (150-450); RED BLOOD COUNT 4.53 10^6/uL (4.00-5.40); WHITE BLOOD COUNT 5.5 10^3/uL (4.0-10.0)
[2020-05-26 15:10] LABS: ALBUMIN 3.6 GM/DL (3.2-5.2); ALT/SGPT 23 U/L (12-78); BILIRUBIN,TOTAL 0.4 MG/DL (0.2-1.0); BLOOD UREA NITROGEN 18 MG/DL (7-18); CALCIUM LEVEL 9.2 MG/DL (8.5-10.1); CARBON DIOXIDE LEVEL 28 MEQ/L (21-32); CHLORIDE LEVEL 108 MEQ/L (98-107); CHOLESTEROL LEVEL 177 MG/DL (<200); CHOLESTEROL RISK RATIO 2.723 (<5); CREATININE FOR GFR 0.85 MG/DL (0.55-1.30); FREE T4 0.91 NG/DL (0.76-1.46); GLOMERULAR FILTRATION RATE > 60.0 (>60); GLUCOSE, FASTING 87 MG/DL (70-100); HDL CHOLESTEROL 65 MG/DL (>40); LDL CHOLESTEROL 104 MG/DL (<100); NON-HDL-C 112 MG/DL; POTASSIUM SERUM 4.2 MEQ/L (3.5-5.1); SODIUM LEVEL 142 MEQ/L (136-145); THYROID STIMULATING HORMONE 0.732 uIU/ML (0.358-3.740); TOTAL 25(OH) VITAMIN D 47.2 NG/ML (30.0-100.0); TOTAL PROTEIN 6.1 GM/DL (6.4-8.2); TRIGLYCERIDES LEVEL 38 MG/DL (<150); VITAMIN B12 LEVEL 1327 PG/ML (247-911)
== END ==
LOC: M WUC 09:04
PROVIDERS: ATTEND Family Medicine
DX: R53.83 Other fatigue (principal); Z13.0 Encounter for screening for diseases of the blood and blood-forming organs and certain disorders involving the immune mechanism; Z13.29 Encounter for screening for other suspected endocrine disorder; Z13.220 Encounter for screening for lipoid disorders

== ENCOUNTER → 2021-05-08 | Outpatient (CLI) | payer OTHER ==
[2021-05-08 11:21] LABS: BASO % 0.6 % (0.0-1.0); EOS # 0.1 10^3/uL (0.0-0.5); EOS % 1.3 % (0.0-3.0); HEMOGLOBIN 13.8 g/dl (12.0-15.5); LYMPH # 2.1 10^3/uL (1.5-5.0); LYMPH % 39.9 % (24.0-44.0); MEAN CORPUSCULAR HEMOGLOBIN 30.5 pg (27.0-33.0); MEAN CORPUSCULAR HGB CONC 32.9 g/dl (32.0-36.5); MEAN CORPUSCULAR VOLUME 92.7 fl (80.0-96.0); MONO # 0.5 10^3/uL (0.0-0.8); MONO % 9.7 % (2.0-8.0); NEUTROPHILS # 2.5 10^3/uL (1.5-8.5); NEUTROPHILS % 48.3 % (36.0-66.0); PLATELET COUNT, AUTOMATED 209 10^3/uL (150-450); RED BLOOD COUNT 4.53 10^6/uL (4.00-5.40); WHITE BLOOD COUNT 5.3 10^3/uL (4.0-10.0)
[2021-05-08 11:49] LABS: ALBUMIN 3.8 GM/DL (3.2-5.2); ALT/SGPT 27 U/L (12-78); BILIRUBIN,TOTAL 0.8 MG/DL (0.2-1.0); BLOOD UREA NITROGEN 14 MG/DL (7-18); CALCIUM LEVEL 9.7 MG/DL (8.5-10.1); CARBON DIOXIDE LEVEL 31 MEQ/L (21-32); CHLORIDE LEVEL 109 MEQ/L (98-107); CHOLESTEROL LEVEL 193 MG/DL (<200); CHOLESTEROL RISK RATIO 2.573 (<5); CREATININE FOR GFR 0.93 MG/DL (0.55-1.30); FREE T4 0.93 NG/DL (0.76-1.46); GLOMERULAR FILTRATION RATE > 60.0 (>60); GLUCOSE, FASTING 85 MG/DL (70-100); HDL CHOLESTEROL 75 MG/DL (>40); LDL CHOLESTEROL 111 MG/DL (<100); NON-HDL-C 118 MG/DL; POTASSIUM SERUM 4.3 MEQ/L (3.5-5.1); SODIUM LEVEL 142 MEQ/L (136-145); THYROID STIMULATING HORMONE 0.393 uIU/ML (0.358-3.740); TOTAL PROTEIN 6.3 GM/DL (6.4-8.2); TRIGLYCERIDES LEVEL 36 MG/DL (<150)
== END ==
LOC: M WUC 09:57
PROVIDERS: ATTEND Family Medicine
DX: Z13.220 Encounter for screening for lipoid disorders (principal); Z13.29 Encounter for screening for other suspected endocrine disorder; Z13.0 Encounter for screening for diseases of the blood and blood-forming organs and certain disorders involving the immune mechanism

== ENCOUNTER → 2022-05-10 | Outpatient (CLI) | payer OTHER ==
[~2022-05-10] MED LIST changes: -ASMA110A IN; -ASMA16.7 INH; +MOME110A IN; +MOME13HF4 INH; +MONT-5 PO; -SING10TA32 PO
[2022-05-10 12:16] LABS: BASO # 0.1 10^3/uL (0.0-0.2); BASO % 0.8 % (0.0-1.0); EOS # 0.1 10^3/uL (0.0-0.5); EOS % 1.9 % (0.0-3.0); HEMATOCRIT 41.5 % (36.0-47.0); HEMOGLOBIN 13.5 g/dl (12.0-15.5); LYMPH # 2.4 10^3/uL (1.5-5.0); LYMPH % 38.4 % (24.0-44.0); MEAN CORPUSCULAR HGB CONC 32.5 g/dl (32.0-36.5); MEAN CORPUSCULAR VOLUME 95.2 fl (80.0-96.0); MONO # 0.5 10^3/uL (0.0-0.8); MONO % 8.7 % (2.0-8.0); NEUTROPHILS # 3.1 10^3/uL (1.5-8.5); PLATELET COUNT, AUTOMATED 217 10^3/uL (150-450); RED BLOOD COUNT 4.36 10^6/uL (4.00-5.40); WHITE BLOOD COUNT 6.2 10^3/uL (4.0-10.0)
[2022-05-10 12:24] LABS: ALBUMIN 3.9 G/DL (3.2-5.2); ALKALINE PHOSPHATASE 38 U/L (46-116); ALT/SGPT 25 U/L (7.0-40); AST/SGOT 21 U/L (<34); BILIRUBIN,TOTAL 0.7 MG/DL (0.3-1.2); BLOOD UREA NITROGEN 16 MG/DL (9-23); CALCIUM LEVEL 9.3 MG/DL (8.5-10.1); CARBON DIOXIDE LEVEL 30 MMOL/L (20-31); CHLORIDE LEVEL 105 MMOL/L (98-107); CHOLESTEROL LEVEL 170 MG/DL (<200); CHOLESTEROL RISK RATIO 2.32 (<5); CREATININE FOR GFR 0.86 MG/DL (0.55-1.30); GLOMERULAR FILTRATION RATE > 60.0 (>60); GLUCOSE, FASTING 95 MG/DL (60-100); IRON (FE) 54 UG/DL (50-170); LDL CHOLESTEROL 91.2 MG/DL (<100); NON-HDL-C 97 MG/DL; PERCENT SATURATION 18.4 % (13.2-45.0); POTASSIUM SERUM 4.3 MMOL/L (3.5-5.1); SODIUM LEVEL 141 MMOL/L (136-145); TOTAL IRON BINDING CAPACITY 293 UG/DL (250-425); TOTAL PROTEIN 6.1 G/DL (5.7-8.2); TRIGLYCERIDES LEVEL 29 MG/DL (<150)
[2022-05-10 12:25] LABS: FREE T4 0.98 NG/DL (0.89-1.76); THYROID STIMULATING HORMONE 0.783 uIU/ML (0.55-4.78)
[2022-05-10 12:26] LABS: FERRITIN 92.6 NG/ML (7.3-270.7); FOLATE 17.05 NG/ML (>5.4); TOTAL 25(OH) VITAMIN D 29.3 NG/ML (20.0-100.0)
[2022-05-10 12:27] LABS: VITAMIN B12 LEVEL 408 PG/ML (211-911)
== END ==
LOC: M WUC 10:02
PROVIDERS: ATTEND Family Medicine
DX: Z13.0 Encounter for screening for diseases of the blood and blood-forming organs and certain disorders involving the immune mechanism (principal); Z13.220 Encounter for screening for lipoid disorders; Z13.29 Encounter for screening for other suspected endocrine disorder; R53.83 Other fatigue

== ENCOUNTER → 2022-12-28 | Outpatient (CLI) | payer OTHER ==
[~2022-12-28] MED LIST changes: +PROHANCE 279.3MG/ML 15ML VIAL ONE
== END ==
LOC: M PLAIMG 10:19
PROVIDERS: ATTEND Physician Assistant
DX: D18.03 Hemangioma of intra-abdominal structures (principal); K76.89 Other specified diseases of liver; N28.1 Cyst of kidney, acquired
CPT/HCPCS: 74183; A9576

== ENCOUNTER → 2023-05-09 | Outpatient (CLI) | payer OTHER ==
[~2023-05-09] MED LIST changes: -PROHANCE 279.3MG/ML 15ML VIAL ONE
== END ==
LOC: M WUC 08:38
DX: E27.40 Unspecified adrenocortical insufficiency (principal); R68.82 Decreased libido; Z13.29 Encounter for screening for other suspected endocrine disorder; R53.83 Other fatigue; R63.5 Abnormal weight gain; E55.9 Vitamin D deficiency, unspecified; R79.82 Elevated C-reactive protein (CRP); M25.50 Pain in unspecified joint; E63.9 Nutritional deficiency, unspecified; G47.9 Sleep disorder, unspecified; Z53.9 Procedure and treatment not carried out, unspecified reason

== ENCOUNTER → 2023-05-09 | Outpatient (CLI) | payer OTHER ==
[2023-05-09 09:52] LABS: HEMATOCRIT 42.6 % (36.0-47.0); MEAN CORPUSCULAR HEMOGLOBIN 30.8 pg (27.0-33.0); MEAN CORPUSCULAR HGB CONC 32.9 g/dl (32.0-36.5); MEAN CORPUSCULAR VOLUME 93.8 fl (80.0-96.0); PLATELET COUNT, AUTOMATED 206 10^3/uL (150-450); RED BLOOD COUNT 4.54 10^6/uL (4.00-5.40); WHITE BLOOD COUNT 5.3 10^3/uL (4.0-10.0)
[2023-05-09 10:22] LABS: C REACTIVE PROTEIN QUANTITATIV < 0.40 MG/DL (<1.0)
[2023-05-09 10:24] LABS: ALKALINE PHOSPHATASE 37 U/L (46-116); ALT/SGPT 18 U/L (7.0-40); AST/SGOT 15 U/L (<34); BLOOD UREA NITROGEN 18 MG/DL (9-23); CALCIUM LEVEL 8.9 MG/DL (8.5-10.1); CARBON DIOXIDE LEVEL 30 MMOL/L (20-31); CHLORIDE LEVEL 106 MMOL/L (98-107); CHOLESTEROL LEVEL 169 MG/DL (<200); CHOLESTEROL RISK RATIO 2.65 (<5); CREATININE FOR GFR 0.95 MG/DL (0.55-1.30); GLOMERULAR FILTRATION RATE > 60.0 (>58); GLUCOSE, FASTING 92 MG/DL (60-100); HDL CHOLESTEROL 63.7 MG/DL (>40); LDL CHOLESTEROL 94.9 MG/DL (<100); NON-HDL-C 105.3 MG/DL; POTASSIUM SERUM 4.1 MMOL/L (3.5-5.1); SODIUM LEVEL 139 MMOL/L (136-145); TOTAL PROTEIN 6.1 G/DL (5.7-8.2); TRIGLYCERIDES LEVEL 52 MG/DL (<150)
[2023-05-09 10:34] LABS: TESTOSTERONE 18 NG/DL (14-76)
[2023-05-09 10:35] LABS: THYROGLOBULIN ANTIBODY < 15.0 U/ML (<60.0); THYROID PEROXIDASE ANTIBODY 36 U/ML (<60.0); THYROXINE (T4) 7.6 UG/DL (4.5-10.9)
[2023-05-09 10:36] LABS: FERRITIN 99.6 NG/ML (7.3-270.7); FOLLICLE STIMULATING HORMONE 25.1 mIU/ML; PROGESTERONE 0.43 NG/ML
[2023-05-09 10:37] LABS: TOTAL 25(OH) VITAMIN D 32.3 NG/ML (20.0-100.0)
[2023-05-09 10:38] LABS: FREE T3 3.9 PG/ML (2.3-4.2)
[2023-05-09 10:39] LABS: ESTRADIOL 64.4 PG/ML; THYROID STIMULATING HORMONE 1.324 uIU/ML (0.55-4.78)
[2023-05-09 10:40] LABS: CORTISOL AM 6.4 UG/DL (4.3-22.4)
[2023-05-09 10:42] LABS: HCG, SERUM QUALITATIVE NEGATIVE (NEGATIVE)
== END ==
LOC: M LAB 09:01
PROVIDERS: ATTEND Physician Assistant
DX: E27.40 Unspecified adrenocortical insufficiency (principal)

== ENCOUNTER → 2023-11-22 | Outpatient (CLI) | payer OTHER | LOC: M WHC 08:03 | PROVIDERS: ATTEND Physician Assistant | DX: Z12.31 Encounter for screening mammogram for malignant neoplasm of breast (principal); R92.323 Mammographic fibroglandular density, bilateral breasts ==

== ENCOUNTER → 2024-01-15 | Outpatient (REF) | payer OTHER | LOC: M LAB REF 17:34 | PROVIDERS: ATTEND Physician Assistant Medical | DX: B34.9 Viral infection, unspecified (principal) ==

== ENCOUNTER 2024-02-03 19:42 | Emergency (ER) | payer OTHER ==
[~2024-02-03] VITALS: Ht 157.5 cm; Wt 70.5 kg
[2024-02-03 19:49] VITALS: TEMP 98.1
[2024-02-03 20:28] LABS: BASO # 0.1 10^3/uL (0.0-0.2); BASO % 0.6 % (0.0-1.0); EOS # 0.2 10^3/uL (0.0-0.5); EOS % 1.7 % (0.0-3.0); HEMATOCRIT 45.3 % (36.0-47.0); HEMOGLOBIN 14.8 g/dl (12.0-15.5); LYMPH # 3.3 10^3/uL (1.5-5.0); LYMPH % 30.8 % (24.0-44.0); MEAN CORPUSCULAR HEMOGLOBIN 30.4 pg (27.0-33.0); MEAN CORPUSCULAR HGB CONC 32.7 g/dl (32.0-36.5); MONO % 9.5 % (2.0-8.0); NEUTROPHILS # 6.2 10^3/uL (1.5-8.5); NEUTROPHILS % 57.1 % (36.0-66.0); PLATELET COUNT, AUTOMATED 230 10^3/uL (150-450); RED BLOOD COUNT 4.87 10^6/uL (4.00-5.40); WHITE BLOOD COUNT 10.8 10^3/uL (4.0-10.0)
[2024-02-03 20:52] LABS: BLOOD UREA NITROGEN 22 MG/DL (9-23); CARBON DIOXIDE LEVEL 29 MMOL/L (20-31); CHLORIDE LEVEL 110 MMOL/L (98-107); CREATININE FOR GFR 0.94 MG/DL (0.55-1.30); GLOMERULAR FILTRATION RATE > 60.0 (>58); GLUCOSE, FASTING 77 MG/DL (60-100); POTASSIUM SERUM 4.4 MMOL/L (3.5-5.1); SODIUM LEVEL 142 MMOL/L (136-145)
[2024-02-03 21:00] VITALS: BP 110/62; O2SAT 98
[2024-02-03] MEDS ORDERED: CIPR-249 PO (21:21)
[2024-02-03] MEDS: CIPROFLOXACIN 500MG TABLET PO ONE (21:28)
== END 2024-02-03 21:33 | disposition home or self-care (01) ==
LOC: M ED 19:42
DX: N39.0 Urinary tract infection, site not specified (principal); J45.909 Unspecified asthma, uncomplicated; K21.9 Gastro-esophageal reflux disease without esophagitis; Z88.2 Allergy status to sulfonamides; Z79.52 Long term (current) use of systemic steroids; Z79.2 Long term (current) use of antibiotics; Z79.899 Other long term (current) drug therapy

== ENCOUNTER → 2024-06-06 | Outpatient (CLI) | payer OTHER ==
[~2024-06-06] MED LIST changes: +CIPR-249 PO
[2024-06-06 15:46] LABS: BASO % 0.4 % (0.0-1.0); EOS # 0.1 10^3/uL (0.0-0.5); EOS % 1.1 % (0.0-3.0); HEMATOCRIT 43.7 % (36.0-47.0); HEMOGLOBIN 14.2 g/dl (12.0-15.5); LYMPH # 2.1 10^3/uL (1.5-5.0); LYMPH % 29.4 % (24.0-44.0); MEAN CORPUSCULAR HEMOGLOBIN 30.5 pg (27.0-33.0); MEAN CORPUSCULAR HGB CONC 32.5 g/dl (32.0-36.5); MEAN CORPUSCULAR VOLUME 93.8 fl (80.0-96.0); MONO # 0.6 10^3/uL (0.0-0.8); MONO % 8.3 % (2.0-8.0); NEUTROPHILS # 4.3 10^3/uL (1.5-8.5); NEUTROPHILS % 60.5 % (36.0-66.0); PLATELET COUNT, AUTOMATED 241 10^3/uL (150-450); RED BLOOD COUNT 4.66 10^6/uL (4.00-5.40); WHITE BLOOD COUNT 7.2 10^3/uL (4.0-10.0)
[2024-06-06 16:06] LABS: ALBUMIN 3.9 G/DL (3.2-5.2); ALKALINE PHOSPHATASE 48 U/L (35-104); ALT/SGPT 23 U/L (7.0-40); AST/SGOT 16 U/L (<34); BILIRUBIN,TOTAL 0.9 MG/DL (0.3-1.2); BLOOD UREA NITROGEN 28 MG/DL (9-23); C REACTIVE PROTEIN QUANTITATIV < 0.50 MG/DL (<1.0); CALCIUM LEVEL 9.9 MG/DL (8.5-10.1); CARBON DIOXIDE LEVEL 30 MMOL/L (20-31); CHLORIDE LEVEL 106 MMOL/L (98-107); CREATININE FOR GFR 0.98 MG/DL (0.55-1.30); GLOMERULAR FILTRATION RATE > 60.0 (>58); GLUCOSE, FASTING 83 MG/DL (60-100); POTASSIUM SERUM 4.4 MMOL/L (3.5-5.1); SODIUM LEVEL 143 MMOL/L (136-145); TOTAL PROTEIN 6.9 G/DL (5.7-8.2)
== END ==
LOC: M PLALAB 11:09
PROVIDERS: ATTEND Physician Assistant
DX: J32.8 Other chronic sinusitis (principal)

== ENCOUNTER → 2024-06-29 | Outpatient (CLI) | payer OTHER | LOC: M PLAIMG 08:15 | PROVIDERS: ATTEND Physician Assistant | DX: J32.8 Other chronic sinusitis (principal) ==

== ENCOUNTER → 2024-07-20 | Outpatient (CLI) | payer OTHER | LOC: M RAD 13:46 | PROVIDERS: ATTEND Physician Assistant | DX: R39.15 Urgency of urination (principal); N28.1 Cyst of kidney, acquired ==

== ENCOUNTER → 2025-02-11 | Outpatient (CLI) | payer OTHER ==
[~2025-02-11] MED LIST changes: -IBUP-1022 PO; +IBUP600T42 PO
[2025-02-11 12:36] LABS: ALT/SGPT 27.0 U/L (7.0-40); AST/SGOT 23.0 U/L (<34); CALCIUM LEVEL 9.8 MG/DL (8.5-10.1); CARBON DIOXIDE LEVEL 31.0 MMOL/L (20-31); CHLORIDE LEVEL 105.0 MMOL/L (98-107); CREATININE FOR GFR 0.96 MG/DL (0.55-1.30); GLOMERULAR FILTRATION RATE 75.8 (>58); POTASSIUM SERUM 4.1 MMOL/L (3.5-5.1); PTH INTACT 46.1 PG/ML (18.5-88.0); SODIUM LEVEL 141.0 MMOL/L (136-145)
[2025-02-11 12:40] LABS: TESTOSTERONE 216.0 NG/DL (14-76)
== END ==
LOC: M WUC 08:03
PROVIDERS: ATTEND Physician Assistant
DX: R68.82 Decreased libido (principal); E27.40 Unspecified adrenocortical insufficiency; Z13.29 Encounter for screening for other suspected endocrine disorder; R53.83 Other fatigue; R63.5 Abnormal weight gain; E55.9 Vitamin D deficiency, unspecified; R79.82 Elevated C-reactive protein (CRP); M25.50 Pain in unspecified joint; Z79.83 Long term (current) use of bisphosphonates; M79.10 Myalgia, unspecified site

== ENCOUNTER → 2025-02-26 | Outpatient (CLI) | payer OTHER | LOC: M WHC 07:14 | PROVIDERS: ATTEND Physician Assistant | DX: Z12.31 Encounter for screening mammogram for malignant neoplasm of breast (principal); R92.323 Mammographic fibroglandular density, bilateral breasts ==